=== PATIENT | male | born 1970 | race Caucasian/White ===

== ENCOUNTER 2018-10-02 07:03 | Outpatient (CLI) | payer OTHER | END 2018-10-02 07:22 | disposition home or self-care (01) | LOC: LAB 07:03 | DX: E11.9 Type 2 diabetes mellitus without complications (principal); E78.00 Pure hypercholesterolemia, unspecified; E78.3 Hyperchylomicronemia; D65 Disseminated intravascular coagulation [defibrination syndrome]; D66 Hereditary factor VIII deficiency; N39.0 Urinary tract infection, site not specified; I10 Essential (primary) hypertension; Z01.810 Encounter for preprocedural cardiovascular examination ==

== ENCOUNTER 2018-10-20 05:30 | Day surgery (SDC) | payer OTHER | END 2018-10-20 11:40 | disposition home or self-care (01) | LOC: CIR.AMB 05:30 | DX: M24.541 Contracture, right hand (principal) ==